=== PATIENT | male | born 2000 | race African-American/Black ===

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

== ENCOUNTER 2021-04-01 17:16 | Emergency (ER) | payer OTHER, MEDICAID ==
[~2021-04-01] VITALS: Ht 188 cm; Wt 102.1 kg
[2021-04-01] MEDS ORDERED: NORFLEX100 MG PO (20:43)
[2021-04-01 20:50] VITALS: BP 137/85
--- NOTE | 2021-04-02 08:34 | EKG ---
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[facility] : 2000 Requested By: Inder Benítez Order Number: [id number] MD: Marco Antonio Robin Measurements Intervals [place] Rate: 84 P: 40 MN: 138 QRS: 59 QRSD: 77 T: 36 QT: 326 QTc: 386 Interpretive Statements Sinus rhythm ST elev, probable normal early repol pattern Compared to ECG 05/08/2019 21:20:56 ST (T wave) deviation now present Electronically Signed On 04-02-2021 8:34:32 FREIGHT [employer]ICIT[employer] by Marco Antonio Robin [email or web address] <ELECTRONICALLY SIGNED> By: Marco Antonio Robin MD, FACC 04/02/21 0834 [id number] Marco Antonio Robin MD, [facility] /EPI
== END 2021-04-01 20:51 | disposition home or self-care (01) ==
LOC: M.ERS 17:16
DX: R07.89 Other chest pain (principal); Z20.822 Contact with and (suspected) exposure to COVID-19; J45.909 Unspecified asthma, uncomplicated; F32.9 Major depressive disorder, single episode, unspecified; Z88.1 Allergy status to other antibiotic agents